=== PATIENT | male | born 1955 | race Caucasian/White ===

== ENCOUNTER 2016-07-08 07:17 | Observation (INO) | payer BC ==
[2016-07-08] MEDS ORDERED: SODIUM CHLORIDE 0.9% 1,000 ML IV STA (07:41)
--- NOTE | 2016-07-08 07:48 | ED ---
General Adult HPI - General Chief complaint: Chest Pain Stated complaint: chest pain Time Seen by Provider: 07/08/16 07:27 Source: patient, RN notes reviewed Mode of arrival: EMS Limitations: no limitations - History of Present Illness Initial comments: Patient is a pleasant 60-year-old male presenting to the emergency Department with complaints of weakness and paresthesias and chest discomfort. Last known well was when he went to sleep. Patient awoke this morning prior to arrival and was sweaty. Patient had chest pressure however it was mild and has resolved. Patient felt weak all over. No isolated area of weakness. Patient does have continued paresthesias in his entire left side. Patient has been experiencing these paresthesias for several months and really frequently. No confusion. - Related Data Home Medications Medication Instructions Recorded Confirmed Aspirin 81 mg PO DAILY 07/03/15 02/14/16 Clopidogrel [Plavix] 75 mg PO HS 07/03/15 02/14/16 Lisinopril [Zestril] 5 mg PO HS 07/03/15 02/14/16 Metoprolol Tartrate [Lopressor] 25 mg PO DAILY 07/03/15 02/14/16 Glucosamine 750 Mg 750 mg PO DAILY 02/14/16 02/14/16 Previous Rx's Medication Instructions Recorded Atorvastatin [Lipitor] 80 mg PO HS #30 tab 05/24/15 Nitroglycerin Sl Tabs [Nitrostat] 0.4 mg SUBLINGUAL Q5M PRN #25 tab 05/24/15 Allergies Allergy/AdvReac Type Severity Reaction Status Date / Time Penicillins Allergy Rash/Hives Verified 07/08/16 07:22 Review of Systems ROS Statement: Those systems with pertinent positive or pertinent negative responses have been documented in the HPI. ROS Other: All systems not noted in ROS Statement are negative. Constitutional: Denies: fever Eyes: Denies: eye pain ENT: Denies: ear pain Respiratory: Denies: cough, dyspnea Cardiovascular: Reports: chest pain Endocrine: Denies: heat or cold intolerance Gastrointestinal: Denies: abdominal pain Genitourinary: Denies: dysuria Musculoskeletal: Denies: back pain Skin: Denies: rash Neurological: Reports: weakness (Generalized), paresthesias. Denies: headache Past Medical History Past Medical History: Coronary Artery Disease (CAD), Chest Pain / Angina, Hyperlipidemia, Hypertension, Myocardial Infarction ([place]) Additional Past Medical History / Comment(s): 05/21/15 STEMI-LAD with PTCA and stent to LAD. Echo at that time showed EF of 35-40%. Other HX: Spina bifida, vertigo with vestibular neuronitis, sinusitis Last Myocardial Infarction Date:: 05/21/15 History of Any Multi-Drug Resistant Organisms: None Reported Past Surgical History: Heart Catheterization With Stent, Joint Replacement, Tonsillectomy Additional Past Surgical History / Comment(s): 05/21/15 PTCA with stent to LAD , right knee replacement, 2013 colonoscopy Past Anesthesia/Blood Transfusion Reactions: No Reported Reaction Date of Last Stent Placement:: 05/21/15 Past Psychological History: No Psychological Hx Reported Additional Psychological History / Comment(s): Pt resides with his spouse. He is independent. He uses no assistive device. He drives. Smoking Status: Former smoker Past Alcohol Use History: Occasional Additional Past Alcohol Use History / Comment(s): Pt smoked for one year as a teen then quit. Past Drug Use History: None Reported - Past Family History Father Family Medical History: Myocardial Infarction ([place]) Additional Family Medical History / Comment(s): father at age 51 from a heart attack Mother Family Medical History: Cancer Additional Family Medical History / Comment(s): breast Daughter(s) Family Medical History: Cancer Additional Family Medical History / Comment(s): thyroid General Exam Limitations: no limitations General appearance: alert, in no apparent distress Head exam: Present: atraumatic Eye exam: Present: normal appearance, PERRL ENT exam: Present: normal oropharynx Neck exam: Present: normal inspection Respiratory exam: Present: normal lung sounds bilaterally Cardiovascular Exam: Present: regular rate, normal rhythm GI/Abdominal exam: Present: soft. Absent: tenderness Extremities exam: Present: normal inspection. Absent: pedal edema, calf tenderness Neurological exam: Present: alert, oriented X3, CN II-XII intact. Absent: motor sensory deficit Expanded Speech: Present: fluid speech Cranial nerves: EOM's Intact: Normal, Facial Sensation: Normal Cerebellar function: Finger to Nose: Normal Sensory exam: Upper Extremity Light Touch: Normal, Lower Extremity Light Touch: Normal Motor strength exam: RUE: 5, LUE: 5, RLE: 5, LLE: 5 Eye Response: (4) open spontaneously Motor Response: (6) obeys commands Verbal Response: (5) oriented Psychiatric exam: Present: normal affect, normal mood Skin exam: Absent: rash Course Vital Signs 07/08/16 07/08/16 07/08/16 07:22 08:22 10:22 Temperature 97.4 F L Pulse Rate 56 L 56 L 66 Respiratory Rate Blood Pressure 157/87 134/80 127/74 O2 Sat by Pulse 99 98 98 Oximetry EKG Findings - EKG Comments: EKG Findings:: Sinus bradycardia at 54. Normal intervals. Normal axis. Septal Q waves. No acute ST change. Medical Decision Making - Medical Decision Making Patient reevaluated and resting comfortably in bed. Patient and family updated on results and plan. Case was discussed in detail with Dr. Steele, who will admit for Dr. Macdonald. - Lab Data Result diagrams: 07/08/16 07:33 07/08/16 07:33 Lab Results 07/08/16 07/08/16 07/08/16 Range/Units 07:33 07:33 07:33 WBC 7.2 (3.8-10.6) k/uL RBC 5.32 (4.30-5.90) m/uL Hgb 15.4 (13.0-17.5) gm/dL Hct 47.7 (39.0-53.0) % MCV 89.7 (80.0-100.0) fL MCH 28.9 (25.0-35.0) pg MCHC 32.2 (31.0-37.0) g/dL RDW 12.4 (11.5-15.5) % Plt Count 202 (150-450) k/uL Neutrophils % 78 % Lymphocytes % 12 % Monocytes % 8 % Eosinophils % 1 % Basophils % 1 % Neutrophils # 5.6 (1.3-7.7) k/uL Lymphocytes # 0.9 L (1.0-4.8) k/uL Monocytes # 0.5 (0-1.0) k/uL Eosinophils # 0.0 (0-0.7) k/uL Basophils # 0.1 (0-0.2) k/uL PT (9.0-12.0) sec INR (<1.1) APTT (22.0-30.0) sec Sodium 142 (137-145) mmol/L Potassium 4.2 (3.5-5.1) mmol/L Chloride 107 (98-107) mmol/L Carbon Dioxide 25 (22-30) mmol/L Anion Gap 10 mmol/L BUN 14 (9-20) mg/dL Creatinine 1.03 (0.66-1.25) mg/dL Est GFR (MDRD) Af Amer >60 (>60 ml/min/1.73 sqM) Est GFR (MDRD) Non-Af >60 (>60 ml/min/1.73 sqM) Glucose 105 H (74-99) mg/dL Calcium 8.4 (8.4-10.2) mg/dL Magnesium 2.0 (1.6-2.3) mg/dL Total Bilirubin 0.6 (0.2-1.3) mg/dL AST 21 (17-59) U/L ALT 43 (21-72) U/L Alkaline Phosphatase 75 (38-126) U/L Total Creatine Kinase 134 (55-170) U/L CK-MB (CK-2) 0.9 (0.0-2.4) ng/mL CK-MB (CK-2) Rel Index 0.7 Troponin I <0.012 (0.000-0.034) ng/mL Total Protein 6.0 L (6.3-8.2) g/dL Albumin 3.6 (3.5-5.0) g/dL 07/08/16 Range/Units 07:33 WBC (3.8-10.6) k/uL RBC (4.30-5.90) m/uL Hgb (13.0-17.5) gm/dL Hct (39.0-53.0) % MCV (80.0-100.0) fL MCH (25.0-35.0) pg MCHC (31.0-37.0) g/dL RDW (11.5-15.5) % Plt Count (150-450) k/uL Neutrophils % % Lymphocytes % % Monocytes % % Eosinophils % % Basophils % % Neutrophils # (1.3-7.7) k/uL Lymphocytes # (1.0-4.8) k/uL Monocytes # (0-1.0) k/uL Eosinophils # (0-0.7) k/uL Basophils # (0-0.2) k/uL PT 10.6 (9.0-12.0) sec INR 1.1 (<1.1) APTT 24.4 (22.0-30.0) sec Sodium (137-145) mmol/L Potassium (3.5-5.1) mmol/L Chloride (98-107) mmol/L Carbon Dioxide (22-30) mmol/L Anion Gap mmol/L BUN (9-20) mg/dL Creatinine (0.66-1.25) mg/dL Est GFR (MDRD) Af Amer (>60 ml/min/1.73 sqM) Est GFR (MDRD) Non-Af (>60 ml/min/1.73 sqM) Glucose (74-99) mg/dL Calcium (8.4-10.2) mg/dL Magnesium (1.6-2.3) mg/dL Total Bilirubin (0.2-1.3) mg/dL AST (17-59) U/L ALT (21-72) U/L Alkaline Phosphatase (38-126) U/L Total Creatine Kinase (55-170) U/L CK-MB (CK-2) (0.0-2.4) ng/mL CK-MB (CK-2) Rel Index Troponin I (0.000-0.034) ng/mL Total Protein (6.3-8.2) g/dL Albumin (3.5-5.0) g/dL - Radiology Data Radiology results: image reviewed (Computed tomography scan of the brain shows no acute process. Chest x-ray shows no acute process.) Disposition Clinical Impression: Chest pain Disposition: ADMITTED IP TO THIS HOSP
[2016-07-08 08:01] LABS: Basophils # (A) 0.1 k/uL (0-0.2); Basophils % (A) 1 %; CH 30.4; Eosinophils % (A) 1 %; HCT 47.7 % (39.0-53.0); HDW 2.41; HGB 15.4 gm/dL (13.0-17.5); Luc # (Auto) 0.07; Luc % (Auto) 1; Lymphocytes # (A) 0.9 k/uL (1.0-4.8); Lymphocytes % (A) 12 %; MCH 28.9 pg (25.0-35.0); MCHC 32.2 g/dL (31.0-37.0); MCV 89.7 fL (80.0-100.0); Mean Platelet Volume 7.5; Monocytes # (A) 0.5 k/uL (0-1.0); Monocytes % (A) 8 %; Neutrophils # (A) 5.6 k/uL (1.3-7.7); Neutrophils % (A) 78 %; RBC 5.32 m/uL (4.30-5.90); RDW 12.4 % (11.5-15.5); WBC 7.2 k/uL (3.8-10.6); WBC (Perox) 7.47
[2016-07-08 08:03] LABS: INR 1.1 (<1.1); Partial Thromboplastin Time 24.4 sec (22.0-30.0); Prothrombin Time 10.6 sec (9.0-12.0)
[2016-07-08 08:11] LABS: ALT 43 U/L (21-72); AST 21 U/L (17-59); Alkaline Phosphatase 75 U/L (38-126); Anion Gap 10 mmol/L; Blood Urea Nitrogen 14 mg/dL (9-20); Calcium 8.4 mg/dL (8.4-10.2); Carbon Dioxide 25 mmol/L (22-30); Chloride 107 mmol/L (98-107); Glucose 105 mg/dL (74-99); Non-African American GFR(MDRD) >60 (>60 ml/min/1.73 sqM); Potassium 4.2 mmol/L (3.5-5.1); Sodium 142 mmol/L (137-145); Total Bilirubin 0.6 mg/dL (0.2-1.3)
[2016-07-08 08:18] LABS: Creatine Kinase 134 U/L (55-170)
--- NOTE | 2016-07-08 08:25 | CT ---
EXAMINATION TYPE: CT brain wo con DATE OF EXAM: 07/08/2016 8:16 AM COMPARISON: 11/09/2013 INDICATION: Weakness and paresthesia DLP: 1090.4 mGycm, Automated exposure control for dose reduction was used. CONTRAST: None CT of the brain is performed utilizing 3 mm thick sections through the posterior fossa and 3 mm thick sections through the remaining calvarium. Study is performed within 24 hours of arrival to the hosp [facility]. No abnormal hyperdensity is present to suggest an acute intracranial hemorrhage. No mass lesion is evident. No acute infarcts are evident. Ventricles and sulci are appropriate for the patient age. Paranasal sinuses and mastoid air cells within the [id number] are clear. IMPRESSIONS: 1. Normal CT Brain
--- NOTE | 2016-07-08 08:27 | XR ---
EXAMINATION TYPE: XR chest 2V DATE OF EXAM: 07/08/2016 8:19 AM COMPARISON: 02/14/2016 INDICATION: Chest pain TECHNIQUE: Frontal and lateral views of the chest are obtained. FINDINGS: The heart size is normal. The pulmonary vasculature is normal. The lungs are clear. IMPRESSION: 1. No acute pulmonary process.
[2016-07-08 08:31] LABS: Creatine Kinase MB 0.9 ng/mL (0.0-2.4); Troponin I <0.012 ng/mL (0.000-0.034)
[2016-07-08] MEDS ORDERED: ASPIRIN 81 MG CHEW PO STA (10:25)
[2016-07-08] MEDS ORDERED: NITROGLYCERIN SL TABS 0.4 MG TAB SUBLINGUAL PRN (10:25)
[2016-07-08] MEDS: NITROGLYCERIN OINT 1 INCH/GM PACKET TOPICAL SCH ×2 (12:24→19:30)
[2016-07-08 14:36] LABS: Creatine Kinase 118 U/L (55-170)
[2016-07-08 14:49] LABS: Creatine Kinase MB 0.8 ng/mL (0.0-2.4); Troponin I <0.012 ng/mL (0.000-0.034)
[2016-07-08] MEDS ORDERED: GLUCOSAMINE 750 MG PO SCH (16:45)
[2016-07-08] MEDS: METOPROLOL TARTRATE 25 MG TAB PO SCH (17:27)
[2016-07-08] MEDS ORDERED: ATORVASTATIN 80 MG TAB PO SCH (21:00)
[2016-07-08] MEDS ORDERED: LISINOPRIL 5 MG TAB PO SCH (21:00)
[2016-07-08] MEDS ORDERED: CLOPIDOGREL 75 MG TAB PO SCH (21:00)
[2016-07-08 22:14] LABS: Creatine Kinase 140 U/L (55-170)
[2016-07-08 22:28] LABS: Creatine Kinase MB 0.7 ng/mL (0.0-2.4); Troponin I <0.012 ng/mL (0.000-0.034)
[2016-07-09] MEDS: NITROGLYCERIN OINT 1 INCH/GM PACKET TOPICAL SCH ×3 (05:55→15:06)
[2016-07-09 07:46] LABS: Cholesterol 92 mg/dL (<200); HDL Cholesterol 32 mg/dL (40-60); Triglycerides 50 mg/dL (<150)
[2016-07-09] MEDS ORDERED: ASPIRIN 325 MG TAB PO SCH (09:00)
[2016-07-09 09:08] VITALS: RESP 16
[2016-07-09] MEDS: METOPROLOL TARTRATE 25 MG TAB PO SCH (11:00)
--- NOTE | 2016-07-09 11:07 | CONS ---
DATE OF CONSULTATION: CHIEF COMPLAINT: Chest pain. Jaspreet is a 60-year-old gentleman with history of coronary artery disease, status post angioplasty of LAD in April 2015 who presented to the hospital complaining of chest pain. He describes it as a sharp precordial pain without definite radiation to neck, arm or back. He has had some diaphoresis with it, but he also has several other symptoms including facial numbness, left arm numbness and left leg numbness. The numbness is being evaluated by a neurologist. From cardiac standpoint, he looks fine now. EKG does not reveal any ischemic changes. He is symptom free. Cardiac enzymes are negative. He had a stress test in February 10 that was unremarkable. He had an echocardiogram at the beginning of last year that revealed normal LV function. Past medical history is significant for CAD, status post angioplasty, dyslipidemia. Medications include aspirin, Zestril 5 mg daily, Plavix 75 mg daily, Lipitor and sublingual nitroglycerin on a p.r.n. basis. ALLERGIC TO PENICILLIN AND PAXIL. FAMILY HISTORY: Significant for aortic aneurysm in his grandmother. REVIEW OF SYSTEMS: HEENT: Unremarkable. CARDIAC: As described above. RESPIRATORY: Negative. GI: Negative. GENITOURINARY: Negative. ALLERGY/IMMUNOLOGY: Negative. SKIN: Negative. MUSCULOSKELETAL: Negative. PSYCHOSOCIAL: Negative. ENDOCRINE: Negative. DERMATOLOGIC: Negative. CONSTITUTIONAL: Negative. ONCOLOGICAL: Negative. The rest of the system review is not relevant. On exam, comfortable at rest. Vital signs are stable. There is no jugular venous distention. Carotid upstroke is normal. There is no bruit. Chest exam reveals good air entry bilaterally. Heart exam reveals first and second heart sounds. No gallop. No murmur, no rub. Abdomen is soft, nontender. Exam of the extremities did not reveal edema. Peripheral pulses are felt. CT brain is negative. EKG is normal. Chest x-ray is normal. Cardiac enzymes are negative. ASSESSMENT: 1. Atypical chest pain. 2. Coronary artery disease, status post angioplasty. 3. Numbness involving left side of his face. PLAN: From cardiac standpoint he is doing well, had a recent negative stress test. I will obtain a 2-D echo on him to assess his LV function. Facial numbness will be followed by the neurologist.
--- NOTE | 2016-07-09 11:19 | P.HPIM ---
History of Present Illness H&P Date: 07/09/16 Chief Complaint: Sweats, chest pain HISTORY AND PHYSICAL AND DISCHARGE SUMMARY: This is a 60-year-old male. His partner care physician is Dr. Rolando Macdonald and software writer Dr. MAYTE Freitas. Patient states that he woke up in the morning drenched with sweat and had upper mid chest pain. He took a nitroglycerin at home and then a second one on the way into the hospital by EMS. He has a past medical history of acute myocardial infarction in June 2015 status post PCI and stent placement of the LAD, hyperlipidemia, hypertension, spina bifida, vertigo was vestibular neuronitis, sinusitis. Patient states that his chest pain has been gone. He also complains of left face tingling and numbness that has been going on for 3 months. It's over the left cheek and also the scalp over the ear area. He denies any leg or arm involvement. He saw his primary care physician and was not given any medications for this. However patient has had problems with stomach upset for which Dr. MAYTE Freitas placed him on Protonix without any improvement. When he saw his primary care physician, he thought it was related to irritable bowel and patient was placed on Paxil and he took this for 2 days but had a severe psychosis reaction and this was discontinued and patient was placed on a medication specifically for irritable bowel syndrome. Patient is also seen Dr. Nunn in the past couple years ago when he had dizziness issues. Troponins have been negative on 3 draws. Vitamin B12 is 478, triglycerides 50, cholesterol 92, LDL 50, HDL 32. Chest x-ray did not show any acute process. CAT scan of the brain did not show any acute process. EKG was a sinus bradycardia without acute ST-T wave changes. Patient was placed on the observation unit. He has been seen by Dr. Mccoy and has recommended echocardiogram and discharge home and follow-up with Dr. MAYTE Freitas for further workup. Patient is in agreement with this and patient will be discharged home and follow-up also with Dr. Nunn as an outpatient for further workup regarding the paresthesia Review of Systems All systems: negative Constitutional: Reports sweats, Denies chills, Denies fever Eyes: denies blurred vision, denies pain Ears, nose, mouth and throat: Denies headache, Denies sore throat Cardiovascular: Reports chest pain, Denies decreased exercise tolerance, Denies dyspnea on exertion, Denies edema, Denies leg edema, Denies lightheadedness, Denies palpitations, Denies paroxysmal nocturnal dyspnea, Denies shortness of breath, Denies syncope Respiratory: Denies cough Gastrointestinal: Denies abdominal pain, Denies diarrhea, Denies nausea, Denies vomiting Musculoskeletal: Denies myalgias Integumentary: Denies pruritus, Denies rash Neurological: Denies numbness, Denies weakness Psychiatric: Denies anxiety, Denies depression Endocrine: Denies fatigue, Denies weight change Past Medical History Past Medical History: Coronary Artery Disease (CAD), Chest Pain / Angina, Hyperlipidemia, Hypertension, Myocardial Infarction ([place]) Additional Past Medical History / Comment(s): 05/21/15 STEMI-LAD with PTCA and stent to LAD. Echo at that time showed EF of 35-40%. Other HX: Spina bifida, vertigo with vestibular neuronitis, sinusitis Last Myocardial Infarction Date:: 05/21/15 History of Any Multi-Drug Resistant Organisms: None Reported Past Surgical History: Heart Catheterization With Stent, Joint Replacement, Tonsillectomy Additional Past Surgical History / Comment(s): 05/21/15 PTCA with stent to LAD , right knee replacement, 2013 colonoscopy Past Anesthesia/Blood Transfusion Reactions: No Reported Reaction Date of Last Stent Placement:: 05/21/15 Past Psychological History: No Psychological Hx Reported Additional Psychological History / Comment(s): Pt resides with his spouse. He is independent. He uses no assistive device. He drives. Smoking Status: Never smoker Past Alcohol Use History: Occasional Additional Past Alcohol Use History / Comment(s): Pt smoked for one year as a teen then quit. Past Drug Use History: None Reported - Past Family History Father Family Medical History: Myocardial Infarction ([place]) Additional Family Medical History / Comment(s): father at age 51 from a heart attack Mother Family Medical History: Cancer Additional Family Medical History / Comment(s): breast Daughter(s) Family Medical History: Cancer Additional Family Medical History / Comment(s): thyroid Medications and Allergies Home Medications Medication Instructions Recorded Confirmed Type Aspirin 81 mg PO DAILY 07/03/15 07/08/16 History Clopidogrel [Plavix] 75 mg PO HS 07/03/15 07/08/16 History Lisinopril [Zestril] 5 mg PO HS 07/03/15 07/08/16 History Metoprolol Tartrate [Lopressor] 25 mg PO DAILY 07/03/15 07/08/16 History Glucosamine 750 Mg 750 mg PO DAILY 02/14/16 07/08/16 History Allergies Allergy/AdvReac Type Severity Reaction Status Date / Time Penicillins Allergy Rash/Hives Verified 07/08/16 10:39 paroxetine [From Paxil] AdvReac Hallucinati Verified 07/08/16 10:38 ons Physical Exam Vitals: Vital Signs Temp Pulse Pulse Resp BP BP Pulse Ox 07/09/16 09:51 96 07/09/16 08:00 97.8 F 61 16 136/72 97 07/09/16 04:00 97.7 F 55 L 18 117/63 97 07/09/16 00:00 52 L 14 07/08/16 20:00 97.9 F 61 18 111/64 95 07/08/16 16:00 98.3 F 56 L 16 122/66 96 07/08/16 12:00 14 07/08/16 11:51 14 07/08/16 11:45 98.2 F 70 16 137/69 95 07/08/16 10:56 97.4 F L 58 L 17 114/69 97 Intake and Output 07/08/16 07/09/16 07/09/16 22:59 06:59 14:59 Intake Total 120 Balance 120 Intake: Oral 120 Other: Voiding Method Toilet Toilet # Voids 1 1 Gen: This is a 60-year-old male. He is sitting up at the edge of the bed and eating his breakfast and appears to be in no acute distress. No complaints of chest pain or shortness of breath at this time. HEENT: Head is atraumatic, normocephalic. Pupils equal, round. Sclerae is anicteric. NECK: Supple. No JVD. No lymphadenopathy. No thyromegaly. LUNGS: Clear to auscultation. No wheezes or rhonchi. No intercostal retractions. HEART: Regular rate and rhythm. No murmur. ABDOMEN: Soft. Bowel sounds are present. No masses. No tenderness. EXTREMITIES: No pedal edema. No calf tenderness. Dorsalis pedis +2 bilaterally. NEUROLOGICAL: Patient is awake, alert and oriented x3. Cranial nerves 2 through 12 are grossly intact. Results CBC & Chem 7: 07/08/16 07:33 07/08/16 07:33 Labs: Abnormal Lab Results - Last 24 Hours (Table) 07/09/16 Range/Units 06:29 HDL Cholesterol 32 L (40-60) mg/dL Thrombosis Risk Factor Assmnt - DVT/VTE Prophylaxis DVT/VTE Prophylaxis: Low risk, early ambulation encouraged - Choose All That Apply Any of the Below Risk Factors Present?: Yes Each Factor Represents 1 point: Obesity (BMI >25) Other Risk Factors: Yes Each Risk Factor Represents 2 Points: Age 61-74 years Thrombosis Risk Factor Assessment Total Risk Factor Score: 3 Thrombosis Risk Factor Assessment Level: Moderate Risk Assessment and Plan Plan: 1. Atypical chest pain. Patient has been seen by Dr Mccoy. Echocardiogram to be obtained and patient will be discharged home to follow-up with Dr. MAYTE Freitas. 2. Paresthesia of the left side of his face and scalp. Patient to follow-up with Dr. Nunn. Prednisone added. Patient will need workup for possible C1 involvement or MS workup is a possibility. 3. History of coronary artery disease status post PCI and stent placement of the LAD in June 2015. 4. Hyperlipidemia. 5. Hypertension. 6. Vertigo with vestibular neuronitis. Patient placed on the observation unit. Discharge plan: Return home Impression and plan of care have been directed as dictated by the signing physician. Camelia Becerra nurse practitioner acting as scribe for signing physician. Time with Patient: Greater than 30
[2016-07-09 12:42] VITALS: BP 123/68; PULSE 63; TEMP 98.4
--- NOTE | 2016-07-09 13:34 | ECHOF ---
Referral Reason:heart function MEASUREMENTS -------- HEIGHT: 188.0 cm WEIGHT: 89.8 kg BP: 136/72 IVSd: 1.3 cm (0.6 - 1.1) LVIDd: 4.3 cm (3.9 - 5.3) LVPWd: 1.3 cm (0.6 - 1.1) LVIDs: 2.8 cm LA Diam: 4.0 cm (2.7 - 3.8) RVIDd: 3.3 cm (< 3.3) LAESV Index (A-L): 30.90 ml/m Ao Diam: 3.2 cm (2.0 - 3.7) AV Cusp: 2.2 cm (1.5 - 2.6) EPSS: 0.6 cm MV E Galindo: 0.78 m/s MV DecT: 200 ms MV A Galindo: 0.55 m/s MV E/A Ratio: 1.41 RAP: 5.00 mmHg RVSP: 18.61 mmHg MV EF SLOPE: 99.68 mm/s (70 - 150) MV EXCURSION: 14.58 mm (> 18.000) FINDINGS -------- Sinus rhythm. This was a technically good study. The left ventricular size is normal. There is mild concentric left ventricular hypertrophy. Overall left ventricular systolic function is normal with, an EF between 60 - 65 %. The right ventricle is mildly enlarged. LA is midly dilated 29-33ml/m2. The right atrium is normal in size. Aortic valve is trileaflet and is mildly thickened. Mild mitral annular calcification present. Mild mitral regurgitation is present. Trace tricuspid regurgitation present. Right ventricular systolic pressure is normal at < 35 mmHg. Trace/mild (physiologic) pulmonic regurgitation. The aortic root size is normal. There is no pericardial effusion. CONCLUSIONS -------- 1. Sinus rhythm. 2. Mild mitral annular calcification present. 3. Mild mitral regurgitation is present. 4. Trace tricuspid regurgitation present. 5. Right ventricular systolic pressure is normal at < 35 mmHg. 6. Trace/mild (physiologic) pulmonic regurgitation. 7. The aortic root size is normal. 8. There is no pericardial effusion. 9. This was a technically good study. 10. The left ventricular size is normal. 11. There is mild concentric left ventricular hypertrophy. 12. Overall left ventricular systolic function is normal with, an EF between 60 - 65 %. 13. The right ventricle is mildly enlarged. 14. LA is midly dilated 29-33ml/m2. 15. The right atrium is normal in size. 16. Aortic valve is trileaflet and is mildly thickened. DIRECTOR DIVERSITY: Herlinda Barahona RDCS
== END 2016-07-09 15:05 | disposition home or self-care (01) ==
LOC: EC 07:17 → 3OBS 10:31
PROVIDERS: ADMIT Family Medicine; ATTEND Family Medicine
DX: R07.89 Other chest pain (principal); R61 Generalized hyperhidrosis; R53.1 Weakness; R20.0 Anesthesia of skin; R20.2 Paresthesia of skin; H81.20 Vestibular neuronitis, unspecified ear; E78.5 Hyperlipidemia, unspecified; I10 Essential (primary) hypertension; I25.2 Old myocardial infarction; K58.9 Irritable bowel syndrome, unspecified; E66.9 Obesity, unspecified; Z68.25 Body mass index [BMI] 25.0-25.9, adult; I25.10 Atherosclerotic heart disease of native coronary artery without angina pectoris; Z95.5 Presence of coronary angioplasty implant and graft; Z79.82 Long term (current) use of aspirin; Z79.02 Long term (current) use of antithrombotics/antiplatelets; Z79.899 Other long term (current) drug therapy; Z87.891 Personal history of nicotine dependence; Z88.0 Allergy status to penicillin; Z88.8 Allergy status to other drugs, medicaments and biological substances
CPT/HCPCS: 96360; 96361 ×2; 99285; 36415; 93005; 93306; 80061; 80053; 82607; 82550; 82553; 83735; 84484; 85025; 85610; 85730; 71020; 70450; G0378 ×2

== ENCOUNTER 2016-07-18 07:51 | Day surgery (SDC) | payer BC ==
[2016-07-14 12:14] VITALS: BMI 25.7
[~2016-07-18 07:51] MED LIST: SODIUM CHLORIDE 0.9% 1,000 ML IV SCH
[2016-07-18 08:16] VITALS: RESP 18; TEMP 98.2
[2016-07-18 09:47] VITALS: BP 104/70; PULSE 49
--- NOTE | 2016-07-18 17:32 | CE ---
DATE OF SERVICE: 12-lead ECG shows sinus rhythm with normal NE interval and narrow QRS. Heart rate 48 beats a minute. Septal infarct noted, likely old. Tilt table test was performed per protocol. Baseline blood pressure 112/70 mmHg, 48 beats a minute. He was tilted upright at an angle of 70 degrees per protocol. There was no significant change in his heart rate or blood pressure. Heart rate remained in the 50s and 60s. No syncope was noted. At the end of the procedure he was laid supine. IMPRESSION: 1. Normal heart rate and blood pressure response to upright tilting. 2. Sinus bradycardia with septal infarct noted.
== END 2016-07-18 10:00 | disposition home or self-care (01) ==
LOC: CATHEP 07:51
PROVIDERS: ATTEND Internal Medicine Clinical Cardiac Electrophysiology
DX: R00.1 Bradycardia, unspecified (principal); I25.10 Atherosclerotic heart disease of native coronary artery without angina pectoris; Z95.820 Peripheral vascular angioplasty status with implants and grafts; E78.00 Pure hypercholesterolemia, unspecified; I25.2 Old myocardial infarction; Z82.49 Family history of ischemic heart disease and other diseases of the circulatory system; Z79.82 Long term (current) use of aspirin; Z79.899 Other long term (current) drug therapy; Z88.0 Allergy status to penicillin
CPT/HCPCS: 93005; 93660

== ENCOUNTER → 2016-07-28 | Outpatient (CLI) | payer BC ==
--- NOTE | 2016-07-28 12:59 | MR ---
EXAMINATION TYPE: MR angio head wo con DATE OF EXAM: 07/28/2016 12:54 PM COMPARISON: NONE HISTORY: Headaches, dizziness, numbness Three-dimensional [id number] intracranial MRA was performed with multiple intensity projection im ages submitted and source data reviewed at the workstation. The vertebrobasilar system as well as intracranial portions of the internal carotid arteries and thei r major tributaries are patent. I do not see evidence for sizable aneurysm or vascular malformation. Incidental origin of the left posterior communicating artery. IMPRESSION: No significant abnormality identified.
--- NOTE | 2016-07-28 13:07 | MR ---
EXAMINATION TYPE: MR brain wo/w con DATE OF EXAM: 07/28/2016 1:01 PM COMPARISON: NONE HISTORY: Headaches, dizziness, numbness CONTRAST: Patient received 18 mL intravenous MultiHance gadolinium contrast. Multiplanar and multispin-echo imaging of the brain was performed . Pre and post contrast enhanced i mages are obtained. The ventricles, basal cisterns and sulci overlying the cerebral convexities are mildly enlarged. There is evidence of minimal periventricular white matter ischemic demyelination. Remote deep white matter insults are also noted. No acute edema is seen on diffusion weighted imaging. There is no evidence for midline shift or mass effect. Acute intracranial hemorrhage or extra-axial collection is not evident. No enhancing lesions are seen. The paranasal sinuses and mastoid air cells are well-aerated. IMPRESSION: Age-related atrophic and chronic small vessel ischemic change. No acute intracranial process at this time. No enhancing lesions are seen.
== END ==
LOC: RADMRIMAIN 11:59
PROVIDERS: ATTEND Psychiatry & Neurology Neurology
DX: G31.9 Degenerative disease of nervous system, unspecified (principal); G37.8 Other specified demyelinating diseases of central nervous system; Z88.0 Allergy status to penicillin; Z88.8 Allergy status to other drugs, medicaments and biological substances
CPT/HCPCS: 70544; 70553; A9577

== ENCOUNTER 2018-01-05 07:40 | Observation (INO) | payer BC ==
[2018-01-05] MEDS ORDERED: ASPIRIN 81 MG PO STA (08:00)
[2018-01-05] MEDS ORDERED: NITROGLYCERIN SL TABS 0.4 MG TAB SUBLINGUAL STA ×2 (08:00)
[2018-01-05] MEDS ORDERED: NITROGLYCERIN OINT 1 INCH/GM PACKET TOPICAL STA (08:00)
--- NOTE | 2018-01-05 08:03 | ED ---
General Adult HPI - General Chief complaint: Chest Pain Stated complaint: chest pain Time Seen by Provider: 01/05/18 07:40 Source: patient, RN notes reviewed Mode of arrival: wheelchair Limitations: no limitations - History of Present Illness Initial comments: This is a 62-year-old male with a past medical history significant for high blood pressure and high cholesterol. Patient also had a stent placed for heart attack back in April. Patient states over the last few days been getting some chest pain and some arm radiation but it hasn't stay very long. Patient states last night about midnight he had the chest pressure again with radiation to the jaw and arm and it lasted the whole night. Patient states his Imdur seemed to improve the symptoms but never took them away. Patient denies any smoking history. Patient denies diabetes. Patient denies any headache patient denies numbness weakness. Patient denies any lightheadedness dizziness or near- syncopal episode. Patient denies any shortness of breath or difficulty breathing. Patient denies any nausea. Patient denies any abdominal pain patient denies any vomiting or diarrhea. - Related Data Home Medications Medication Instructions Recorded Confirmed Aspirin 81 mg PO DAILY 07/03/15 07/18/16 Clopidogrel [Plavix] 75 mg PO HS 07/03/15 07/18/16 Lisinopril [Zestril] 5 mg PO HS 07/03/15 07/18/16 Metoprolol Tartrate [Lopressor] 25 mg PO DAILY 07/03/15 07/18/16 Glucosamine 750 Mg 750 mg PO DAILY 02/14/16 07/18/16 Previous Rx's Medication Instructions Recorded Atorvastatin [Lipitor] 80 mg PO HS #30 tab 05/24/15 Nitroglycerin Sl Tabs [Nitrostat] 0.4 mg SUBLINGUAL Q5M PRN #25 tab 05/24/15 Allergies Allergy/AdvReac Type Severity Reaction Status Date / Time Penicillins Allergy Rash/Hives Verified 01/05/18 07:42 guaifenesin [From Robitussin] AdvReac Unknown Verified 01/05/18 07:43 paroxetine [From Paxil] AdvReac Hallucinati Verified 01/05/18 07:42 ons Review of Systems ROS Statement: Those systems with pertinent positive or pertinent negative responses have been documented in the HPI. ROS Other: All systems not noted in ROS Statement are negative. Past Medical History Past Medical History: Coronary Artery Disease (CAD), Chest Pain / Angina, Hyperlipidemia, Hypertension, Myocardial Infarction ([place]) Additional Past Medical History / Comment(s): 05/21/15 STEMI-LAD with PTCA and stent to LAD. Echo at that time showed EF of 35-40%. Other HX: Spina bifida, vertigo with vestibular neuronitis, sinusitis Last Myocardial Infarction Date:: 05/21/15 History of Any Multi-Drug Resistant Organisms: None Reported Past Surgical History: Heart Catheterization With Stent, Joint Replacement, Tonsillectomy Additional Past Surgical History / Comment(s): 05/21/15 PTCA with stent to LAD , right knee replacement, 2013 colonoscopy Past Anesthesia/Blood Transfusion Reactions: No Reported Reaction Date of Last Stent Placement:: 05/21/15 Past Psychological History: No Psychological Hx Reported Smoking Status: Never smoker Past Alcohol Use History: Occasional Past Drug Use History: None Reported - Past Family History Father Family Medical History: Myocardial Infarction ([place]) Additional Family Medical History / Comment(s): father at age 51 from a heart attack Mother Family Medical History: Cancer Additional Family Medical History / Comment(s): breast Daughter(s) Family Medical History: Cancer Additional Family Medical History / Comment(s): thyroid General Exam - General Exam Comments Initial Comments: GENERAL: Patient is well-developed and well-nourished. Patient is nontoxic and well- hydrated and is in mild distress. ENT: Neck is soft and supple. No significant lymphadenopathy is noted. Oropharynx is clear. Moist mucous membranes. Neck has full range of motion without eliciting any pain. EYES: The sclera were anicteric and conjunctiva were pink and moist. Extraocular movements were intact and pupils were equal round and reactive to light. Eyelids were unremarkable. PULMONARY: Unlabored respirations. Good breath sounds bilaterally. No audible rales rhonchi or wheezing was noted. CARDIOVASCULAR: There is a regular rate and rhythm without any murmurs gallops or rubs. ABDOMEN: Soft and nontender with normal bowel sounds. No palpable organomegaly was noted. There is no palpable pulsatile mass. SKIN: Skin is clear with no lesions or rashes and otherwise unremarkable. NEUROLOGIC: Patient is alert and oriented x3. Cranial nerves II through XII are grossly intact. Motor and sensory are also intact. Normal speech, volume and content. Symmetrical smile. MUSCULOSKELETAL: Normal extremities with adequate strength and full range of motion. No lower extremity swelling or edema. No calf tenderness. LYMPHATICS: No significant lymphadenopathy is noted PSYCHIATRIC: Normal psychiatric evaluation. Normal interpersonal interactions appears functionally intact in deals appropriately with others. No signs of depression. No signs of anxiety. Limitations: no limitations Course Vital Signs 01/05/18 01/05/18 07:41 08:42 Temperature 97.9 F Pulse Rate 69 52 L Respiratory 20 16 Rate Blood Pressure 149/71 126/76 O2 Sat by Pulse 98 99 Oximetry Medical Decision Making - Medical Decision Making EKG shows sinus bradycardia 53 bpm KS interval is 146 QRS is 88 QT interval is 428 QTC is 411. Patient's EKG shows no ST segment elevation or depression or T wave abnormalities are noted. Patient has Q waves in leads 3 and aVF which were seen on old EKG. A second EKG was done because the patient was given nitroglycerin and became sweaty and nauseated.EKG shows normal sinus rhythm at 63 bpm KS interval is 152 QRS is 88 QT interval is 400 QTC is 409. Patient's EKG shows no ST segment elevation or depression or T wave abnormalities are noted. EKG was unchanged from the first. Chest x-ray shows no acute abnormality. I started the patient heparin for unstable angina. I spoke with Dr. Matias and admitted the patient I wrote admitting orders consult cardiology. I continued heparin and aspirin and Nitropaste on the floor. - Lab Data Result diagrams: 01/05/18 08:01 01/05/18 08:01 Lab Results 01/05/18 01/05/18 01/05/18 Range/Units 08:01 08:01 08:01 WBC 5.8 (3.8-10.6) k/uL RBC 5.37 (4.30-5.90) m/uL Hgb 15.7 (13.0-17.5) gm/dL Hct 47.4 (39.0-53.0) % MCV 88.3 (80.0-100.0) fL MCH 29.3 (25.0-35.0) pg MCHC 33.2 (31.0-37.0) g/dL RDW 13.2 (11.5-15.5) % Plt Count 213 (150-450) k/uL Neutrophils % 68 % Lymphocytes % 20 % Monocytes % 8 % Eosinophils % 2 % Basophils % 1 % Neutrophils # 3.9 (1.3-7.7) k/uL Lymphocytes # 1.2 (1.0-4.8) k/uL Monocytes # 0.5 (0-1.0) k/uL Eosinophils # 0.1 (0-0.7) k/uL Basophils # 0.0 (0-0.2) k/uL PT (9.0-12.0) sec INR (<1.2) APTT (22.0-30.0) sec Sodium 139 (137-145) mmol/L Potassium 4.4 (3.5-5.1) mmol/L Chloride 107 (98-107) mmol/L Carbon Dioxide 24 (22-30) mmol/L Anion Gap 8 mmol/L BUN 24 H (9-20) mg/dL Creatinine 0.89 (0.66-1.25) mg/dL Est GFR (CKD-EPI)AfAm >90 (>60 ml/min/1.73 sqM) Est GFR (CKD-EPI)NonAf >90 (>60 ml/min/1.73 sqM) Glucose 119 H (74-99) mg/dL Calcium 9.0 (8.4-10.2) mg/dL Magnesium 2.0 (1.6-2.3) mg/dL Total Bilirubin 0.6 (0.2-1.3) mg/dL AST 25 (17-59) U/L ALT 38 (21-72) U/L Alkaline Phosphatase 76 (38-126) U/L Total Creatine Kinase 137 (55-170) U/L CK-MB (CK-2) 1.6 (0.0-2.4) ng/mL CK-MB (CK-2) Rel Index 1.2 Troponin I <0.012 (0.000-0.034) ng/mL Total Protein 6.3 (6.3-8.2) g/dL Albumin 4.0 (3.5-5.0) g/dL 01/05/18 Range/Units 08:01 WBC (3.8-10.6) k/uL RBC (4.30-5.90) m/uL Hgb (13.0-17.5) gm/dL Hct (39.0-53.0) % MCV (80.0-100.0) fL MCH (25.0-35.0) pg MCHC (31.0-37.0) g/dL RDW (11.5-15.5) % Plt Count (150-450) k/uL Neutrophils % % Lymphocytes % % Monocytes % % Eosinophils % % Basophils % % Neutrophils # (1.3-7.7) k/uL Lymphocytes # (1.0-4.8) k/uL Monocytes # (0-1.0) k/uL Eosinophils # (0-0.7) k/uL Basophils # (0-0.2) k/uL PT 10.4 (9.0-12.0) sec INR 1.1 (<1.2) APTT 24.0 (22.0-30.0) sec Sodium (137-145) mmol/L Potassium (3.5-5.1) mmol/L Chloride (98-107) mmol/L Carbon Dioxide (22-30) mmol/L Anion Gap mmol/L BUN (9-20) mg/dL Creatinine (0.66-1.25) mg/dL Est GFR (CKD-EPI)AfAm (>60 ml/min/1.73 sqM) Est GFR (CKD-EPI)NonAf (>60 ml/min/1.73 sqM) Glucose (74-99) mg/dL Calcium (8.4-10.2) mg/dL Magnesium (1.6-2.3) mg/dL Total Bilirubin (0.2-1.3) mg/dL AST (17-59) U/L ALT (21-72) U/L Alkaline Phosphatase (38-126) U/L Total Creatine Kinase (55-170) U/L CK-MB (CK-2) (0.0-2.4) ng/mL CK-MB (CK-2) Rel Index Troponin I (0.000-0.034) ng/mL Total Protein (6.3-8.2) g/dL Albumin (3.5-5.0) g/dL Critical Care Time Critical Care Time: Yes Total Critical Care Time: 35 Disposition Clinical Impression: Unstable angina Disposition: ADMITTED IP TO THIS HOSP Referrals: Jeremías Macdonald MD [Primary Care Provider] - 1-2 days Time of Disposition: 09:15
[2018-01-05 08:14] LABS: Basophils % (A) 1 %; Eosinophils # (A) 0.1 k/uL (0-0.7); Eosinophils % (A) 2 %; HCT 47.4 % (39.0-53.0); HGB 15.7 gm/dL (13.0-17.5); Lymphocytes # (A) 1.2 k/uL (1.0-4.8); Lymphocytes % (A) 20 %; MCH 29.3 pg (25.0-35.0); MCHC 33.2 g/dL (31.0-37.0); MCV 88.3 fL (80.0-100.0); Monocytes # (A) 0.5 k/uL (0-1.0); Monocytes % (A) 8 %; Neutrophils # (A) 3.9 k/uL (1.3-7.7); Neutrophils % (A) 68 %; Platelet Count 213 k/uL (150-450); RBC 5.37 m/uL (4.30-5.90); RDW 13.2 % (11.5-15.5); WBC 5.8 k/uL (3.8-10.6)
[2018-01-05] MEDS ORDERED: ONDANSETRON 4 MG/2 ML VIAL IVP STA (08:15)
[2018-01-05] MEDS ORDERED: SODIUM CHLORIDE 0.9% 1,000 ML IV STA (08:17)
[2018-01-05 08:22] LABS: ALT 38 U/L (21-72); AST 25 U/L (17-59); Alkaline Phosphatase 76 U/L (38-126); Anion Gap 8 mmol/L; Blood Urea Nitrogen 24 mg/dL (9-20); Carbon Dioxide 24 mmol/L (22-30); Chloride 107 mmol/L (98-107); Glucose 119 mg/dL (74-99); INR 1.1 (<1.2); Potassium 4.4 mmol/L (3.5-5.1); Prothrombin Time 10.4 sec (9.0-12.0); Sodium 139 mmol/L (137-145); Total Bilirubin 0.6 mg/dL (0.2-1.3); Total Protein 6.3 g/dL (6.3-8.2)
[2018-01-05 08:34] LABS: Creatine Kinase 137 U/L (55-170)
--- NOTE | 2018-01-05 08:41 | XR ---
EXAMINATION TYPE: XR chest 2V DATE OF EXAM: 01/05/2018 HISTORY: Chest Pain. REFERENCE: Previous study dated 07/08/2016. FINDINGS: Heart size upper limits of normal. The lungs are clear. Pleural spaces are clear. IMPRESSION: NO ACUTE CARDIOTHORACIC ABNORMALITY.
[2018-01-05 08:47] LABS: Creatine Kinase MB 1.6 ng/mL (0.0-2.4); Troponin I <0.012 ng/mL (0.000-0.034)
[2018-01-05] MEDS ORDERED: HEPARIN SODIUM,PORCINE 5,000 UNIT/ML 1 ML VIAL IV ONE (09:14)
[2018-01-05] MEDS ORDERED: NITROGLYCERIN SL TABS 0.4 MG TAB SUBLINGUAL PRN (09:16)
[2018-01-05] MEDS: HEPARIN SOD,PORK IN 0.45% NACL 25,000 UNIT in 0.45% NACL 1 500ML.BAG IV SCH (09:41)
[2018-01-05] MEDS ORDERED: ALPRAZolam 0.25 MG TAB PO PRN (11:33)
--- NOTE | 2018-01-05 11:44 | P.HPIM ---
History of Present Illness H&P Date: 01/05/18 Chief Complaint: Chest pain This is 62 years old male with past medical history significant for coronary artery disease presents to the hospital with new onset chest pain. Patient stated that his been in his regular state of health up until 24-48 hours ago where he started experiencing left sided chest pain radiating to the left arm and to the left jaw when he was resting watching TV. Pain was mild and patient described it as heaviness did not pay attention as pain went away on its own but returned again on Sunday patient started feeding concerned about his chest pain as he had heart attack back in 2014 where he received stent to LAD in April 2018 at [facility] by Dr. Lou. Patient says that time has been complaint with his medication including aspirin, Plavix, statin, beta sherly and MEGHNA inhibitor and stated that he does do regular follow-up with his mammalogy teacher on regular basis. Most recent cardiac evaluation was back in August 2016 where patient was evaluated with an other cardiac catheterization with a found patent stents and minimum coronary artery disease at that time and the recommendation was to continue with current medical treatment. Patient stated that he exercises 3 times a week 45 minutes session each with most recent was done on afternoon without inducing chest pain or having any symptoms. Patient denied any shortness breath or recent upper respiratory symptoms. Patient admitted being overworking himself in the yard and thinks that he was doing extra heavy lifting. Patient had significant past medical history for his father who age 52 because of heart attack and other family members with coronary artery disease at early ages. Patient denied history of tobacco, alcohol or drug abuse stated that he's retired general assignment reporter for [employer] and has been working under a lot of stress up until he retired age 59. Patient lives with his at home independently and independent in all his daily activities. Patient has improved slightly in the emergency department without complete resolution but physical exam revealed tenderness on palpation on the right upper chest area right underneath his clavicle without any swelling or bruising. Left shoulder range of motion without limitation. Left jaw without tenderness to touch. Deep palpation will induce severe pain. Review of Systems All 14 systems reviewed and negative except as above Past Medical History Past Medical History: Coronary Artery Disease (CAD), Chest Pain / Angina, Hyperlipidemia, Hypertension, Myocardial Infarction ([place]) Additional Past Medical History / Comment(s): 05/21/15 STEMI-LAD with PTCA and stent to LAD. Echo at that time showed EF of 35-40%. Other HX: Spina bifida, vertigo with vestibular neuronitis, sinusitis Last Myocardial Infarction Date:: 05/21/15 History of Any Multi-Drug Resistant Organisms: None Reported Past Surgical History: Heart Catheterization With Stent, Joint Replacement, Tonsillectomy Additional Past Surgical History / Comment(s): 05/21/15 PTCA with stent to LAD , right knee replacement, 2013 colonoscopy Past Anesthesia/Blood Transfusion Reactions: No Reported Reaction Date of Last Stent Placement:: 05/21/15 Past Psychological History: No Psychological Hx Reported Smoking Status: Never smoker Past Alcohol Use History: Occasional Past Drug Use History: None Reported - Past Family History Father Family Medical History: Myocardial Infarction ([place]) Additional Family Medical History / Comment(s): father at age 51 from a heart attack Mother Family Medical History: Cancer Additional Family Medical History / Comment(s): breast Daughter(s) Family Medical History: Cancer Additional Family Medical History / Comment(s): thyroid Medications and Allergies Home Medications Medication Instructions Recorded Confirmed Type Atorvastatin [Lipitor] 80 mg PO HS #30 tab 05/24/15 07/18/16 Rx Nitroglycerin Sl Tabs [Nitrostat] 0.4 mg SUBLINGUAL Q5M PRN #25 tab 05/24/15 Rx Aspirin 81 mg PO DAILY 07/03/15 07/18/16 History Clopidogrel [Plavix] 75 mg PO HS 07/03/15 07/18/16 History Lisinopril [Zestril] 5 mg PO HS 07/03/15 07/18/16 History Metoprolol Tartrate [Lopressor] 25 mg PO DAILY 07/03/15 07/18/16 History Glucosamine 750 Mg 750 mg PO DAILY 02/14/16 07/18/16 History Allergies Allergy/AdvReac Type Severity Reaction Status Date / Time Penicillins Allergy Rash/Hives Verified 01/05/18 07:42 guaifenesin [From Robitussin] AdvReac Unknown Verified 01/05/18 07:43 paroxetine [From Paxil] AdvReac Hallucinati Verified 01/05/18 07:42 ons Physical Exam Vitals: Vital Signs Temp Pulse Pulse Resp BP BP Pulse Ox 01/05/18 11:19 16 0811/18 11:17 54 L 16 108/61 98 01/05/18 09:44 98.2 F 51 L 16 106/65 97 01/05/18 08:42 52 L 16 126/76 99 01/05/18 07:41 97.9 F 69 20 149/71 98 Intake and Output 01/04/18 01/05/18 01/05/18 22:59 06:59 14:59 Other: Weight 90.718 kg Gen.: in stated age, no acute distress Heart: Normal S1-S2 Lungs: Clear to auscultation bilaterally Abdomen: Soft, no tenderness, positive bowel sounds in all 4 quadrant no guarding or rebound Skin: No new rash Psych: Alert and oriented 3 Neuro: No focal deficit physical exam revealed tenderness on palpation on the right upper chest area right underneath his clavicle without any swelling or bruising. Left shoulder range of motion without limitation. Left jaw without tenderness to touch. Deep palpation will induce severe pain Results CBC & Chem 7: 01/05/18 08:01 01/05/18 08:01 Labs: Abnormal Lab Results - Last 24 Hours (Table) 01/05/18 Range/Units 08:01 BUN 24 H (9-20) mg/dL Glucose 119 H (74-99) mg/dL Assessment and Plan Assessment: 1. New onset chest pain likely related to musculoskeletal but giving the patient's history of coronary artery disease with stent placement to the LAD back in 2014 and current ongoing chest pain I would like to keep patient's on heparin drip follow up on serial troponin continue with telemetry monitoring and avoid nitroglycerin as patient has developed ALLERGIC reaction in the emergency department with skin irritation and erythema after applying the Nitropaste. Continue cardioprotective medication repeat EKG in the morning and consider cardiac consultation for further evaluation. Most recent cardiac catheterization was done in August 2017. I was unable to pull the records from [facility] system as patient didn't N outpatient lab and we will obtain that record for complete evaluation. We will continue monitoring vital signs closely repeat blood work in the morning and I would like to treat patients with naproxen 500 mg twice daily and other component could be related to anxiety and I would like to start patients on Xanax 0.25 mg 3 times daily as needed with first dose now and monitor patient's clinical progress closely. Patient is agreeable to the current treatment plan. 2. Anxiety and depression. Agent mentioned that he is taking Zoloft at home and I would like to continue home medication and add Xanax as instructed above. 3. Coronary artery disease. Continue cardioprotective medication management as above. 4. Hypertension. Controlled. Continue cardioprotective medication as above. 5. Hyperlipidemia. Continue statin and follow up outpatient with primary care physician regarding management. Discharge planning based on clinical progress
[2018-01-05] MEDS: NITROGLYCERIN OINT 1 INCH/GM PACKET TOPICAL SCH ×4 (12:03→23:14)
--- NOTE | 2018-01-05 12:16 | P.CRDCN ---
History of Present Illness Consult date: 01/05/18 Requesting physician: Jeremías Macdonald Reason for Consult (text): unstable angina Chief complaint: left-sided chest, arm and neck pain History of present illness: This is a pleasant 62-year-old gentleman with a past medical history of hypertension, hyperlipidemia, STEMI in April 2015 at which time he had stent placement previously followed with Dr. MAYTE Freitas in our office and currently has been following with a hosiery pairer Dr. Morley out of [place]. He presents to the hospital with complaints of left-sided chest discomfort that radiated to his neck and left arm, similar to discomfort he felt at time of his ND but much less severe. He had no diaphoresis, dizziness, lightheadedness, or shortness of breath at that time. The pain was somewhat relieved after taking isosorbide which she does not take on a regular basis. He is apparently been having the pain on and off for quite some time, becoming more frequent over the last several weeks, occurs at rest without any exertional symptoms. Discomfort can last a few days. Chest x-ray on admission showed no cardiopulmonary process. He was given Nitropaste in the ER with a significant decrease in blood pressure. EKG showed sinus bradycardia with evidence of prior septal infarct with no acute changes from previous EKG. Most recent available echo from June 2016 showed normal LV systolic function with ejection fraction of 60-65%. Laboratory values showed BUN of 24, creatinine 0.89 and troponin of less than 0.012. Upon examination, patient is resting comfortably in bed. Continues to complain of some mild left chest discomfort worse with palpation. Denies any shortness of breath, palpitations, diaphoresis, abdominal discomfort, nausea, vomiting or dizziness and lightheadedness. Past Medical History Past Medical History: Coronary Artery Disease (CAD), Chest Pain / Angina, Hyperlipidemia, Hypertension, Myocardial Infarction (ND) Additional Past Medical History / Comment(s): 05/21/15 STEMI-LAD with PTCA and stent to LAD. Echo at that time showed EF of 35-40%. Other HX: Spina bifida, vertigo with vestibular neuronitis, sinusitis Last Myocardial Infarction Date:: 05/21/15 History of Any Multi-Drug Resistant Organisms: None Reported Past Surgical History: Heart Catheterization With Stent, Joint Replacement, Tonsillectomy Additional Past Surgical History / Comment(s): 05/21/15 PTCA with stent to LAD , right knee replacement, 2013 colonoscopy Past Anesthesia/Blood Transfusion Reactions: No Reported Reaction Date of Last Stent Placement:: 05/21/15 Past Psychological History: No Psychological Hx Reported Smoking Status: Never smoker Past Alcohol Use History: Occasional Past Drug Use History: None Reported - Past Family History Father Family Medical History: Myocardial Infarction (ND) Additional Family Medical History / Comment(s): father at age 51 from a heart attack Mother Family Medical History: Cancer Additional Family Medical History / Comment(s): breast Daughter(s) Family Medical History: Cancer Additional Family Medical History / Comment(s): thyroid Medications and Allergies Home Medications Medication Instructions Recorded Confirmed Type Atorvastatin [Lipitor] 80 mg PO HS #30 tab 05/24/15 01/05/18 Rx Nitroglycerin Sl Tabs [Nitrostat] 0.4 mg SUBLINGUAL Q5M PRN #25 tab 05/24/1504/14 Rx Aspirin 81 mg PO DAILY 07/03/15 01/05/18 History Clopidogrel [Plavix] 75 mg PO HS 07/03/15 01/05/18 History Lisinopril [Zestril] 5 mg PO HS 07/03/15 01/05/18 History Metoprolol Tartrate [Lopressor] 25 mg PO DAILY 07/03/15 01/05/18 History Glucosamine 750 Mg 750 mg PO DAILY 02/14/16 01/05/18 History Loratadine [Claritin] 10 mg PO DAILY 01/05/18 01/05/18 History Sertraline [Zoloft] 50 mg PO DAILY 01/05/18 01/05/18 History Allergies Allergy/AdvReac Type Severity Reaction Status Date / Time Penicillins Allergy Rash/Hives Verified 01/05/18 12:57 guaifenesin [From Robitussin] AdvReac Unknown Verified 01/05/18 12:57 paroxetine [From Paxil] AdvReac Hallucinati Verified 01/05/18 12:57 ons Physical Exam Vitals: Vital Signs Temp Pulse Pulse Resp BP BP Pulse Ox 01/05/18 11:19 16 01/05/18 11:17 54 L 16 108/61 98 01/05/18 09:44 98.2 F 51 L 16 106/65 97 01/05/18 08:42 52 L 16 126/76 99 01/05/18 07:41 97.9 F 69 20 149/71 98 Intake and Output 01/04/18 01/05/18 01/05/18 22:59 06:59 14:59 Other: Weight 90.718 kg PHYSICAL EXAMINATION: HEENT: [Head is atraumatic, normocephalic. Pupils equal, round. Neck is supple. There is no elevated jugular venous pressure.] HEART EXAMINATION: [Heart sounds regular, S1 and S2 normal. No murmur or gallop heard.] CHEST EXAMINATION:[ Lungs are clear to auscultation and precussion. No chest wall tenderness is noted on palpation or with deep breathing.] ABDOMEN: [ Soft, nontender. Bowel sounds are heard. No organomegaly noted]. EXTREMITIES:[ 2+ peripheral pulses with no evidence of peripheral edema and no calf tenderness noted]. NEUROLOGIC [patient is awake, alert and oriented x3.] . Results 01/05/18 08:01 01/05/18 08:01 Cardiac Enzymes 01/05/18 01/05/18 Range/Units 08:01 08:01 AST 25 (17-59) U/L CK-MB (CK-2) 1.6 (0.0-2.4) ng/mL Troponin I <0.012 (0.000-0.034) ng/mL Coagulation 01/05/18 Range/Units 08:01 PT 10.4 (9.0-12.0) sec APTT 24.0 (22.0-30.0) sec CBC 01/05/18 Range/Units 08:01 WBC 5.8 (3.8-10.6) k/uL RBC 5.37 (4.30-5.90) m/uL Hgb 15.7 (13.0-17.5) gm/dL Hct 47.4 (39.0-53.0) % Plt Count 213 (150-450) k/uL Comprehensive Metabolic Panel 01/05/18 Range/Units 08:01 Sodium 139 (137-145) mmol/L Potassium 4.4 (3.5-5.1) mmol/L Chloride 107 (98-107) mmol/L Carbon Dioxide 24 (22-30) mmol/L BUN 24 H (9-20) mg/dL Creatinine 0.89 (0.66-1.25) mg/dL Glucose 119 H (74-99) mg/dL Calcium 9.0 (8.4-10.2) mg/dL AST 25 (17-59) U/L ALT 38 (21-72) U/L Alkaline Phosphatase 76 (38-126) U/L Total Protein 6.3 (6.3-8.2) g/dL Albumin 4.0 (3.5-5.0) g/dL Current Medications Generic Name Dose Route Start Last Admin Trade Name Freq PRN Reason Stop Dose Admin Alprazolam 0.25 mg 01/05/18 11:33 Xanax PO TID PRN Anxiety Aspirin 325 mg 01/06/18 09:00 Aspirin PO DAILY [facility] Aspirin 81 mg 01/06/18 09:00 Aspirin PO DAILY [facility] Atorvastatin Calcium 80 mg 01/05/18 21:00 Lipitor PO HS [facility] Clopidogrel Bisulfate 75 mg 01/05/18 21:00 Plavix PO HS [facility] Heparin Sodium/Sodium Chloride 500 mls @ 20.01 mls/hr 01/05/18 09:15 09:41 25,000 unit/ Sodium Chloride IV 11.03 units/kg/hr .Q24H PINKY 20.01 mls/hr Administration Protocol 11.03 UNITS/KG/HR Lisinopril 5 mg 01/05/18 21:00 Zestril PO HS [facility] Metoprolol Tartrate 25 mg 01/06/18 09:00 Lopressor PO DAILY [facility] Naproxen 500 mg 01/05/18 11:45 Naprosyn PO BID [facility] Nitroglycerin 1 inch 01/05/18 12:00 Nitro-Bid Oint TOPICAL Q6HR [facility] Nitroglycerin 0.4 mg 01/05/18 09:16 Nitrostat SUBLINGUAL Q5M PRN Chest Pain Intake and Output 01/04/18 01/05/18 01/05/18 22:59 06:59 14:59 Other: Weight 90.718 kg Patient Weight 01/06/18 06:59 Weight 90.718 kg 01/05/18 08:01 01/05/18 08:01 EKG Interpretations (text) Sinus bradycardia with evidence of prior septal infarct, no changes from previous EKG from June 2016 Assessment and Plan Assessment: #1 symptoms of left-sided chest, arm and neck discomfort, troponin negative 1 #2 history of coronary artery disease with prior STEMI and stenting in April 2015 #3 hypertension #4 hyperlipidemia Plan: From cardiology perspective, we will obtain a 2-D echo with Doppler. We will continue to follow the troponins. Avoid nitrates due to significant hypotension. We will schedule the patient to undergo cardiac catheterization tomorrow. Further recommendations to follow. GOLD STAMPER note has been reviewed, I agree with a documented findings and plan of care. Patient was seen and examined.
[2018-01-05] MEDS ORDERED: ALPRAZolam 0.5 MG TAB PO PRN (14:11)
[2018-01-05] MEDS ORDERED: SODIUM CHLORIDE 0.9% 1,000 ML in EMPTY BAG 1 BAG IV ONE (14:11)
[2018-01-05 14:46] LABS: Creatine Kinase 110 U/L (55-170)
[2018-01-05 15:00] LABS: Creatine Kinase MB 1.4 ng/mL (0.0-2.4); Troponin I <0.012 ng/mL (0.000-0.034)
[2018-01-05] MEDS: NAPROXEN 250 MG TAB PO SCH ×2 (17:12→20:25)
[2018-01-05 17:46] VITALS: BMI 25.7
[2018-01-05 20:44] LABS: Creatine Kinase 95 U/L (55-170)
[2018-01-05 20:58] LABS: Creatine Kinase MB 1.2 ng/mL (0.0-2.4); Troponin I <0.012 ng/mL (0.000-0.034)
[2018-01-05] MEDS ORDERED: CLOPIDOGREL 75 MG TAB PO SCH (21:00)
[2018-01-05] MEDS ORDERED: LISINOPRIL 5 MG TAB PO SCH (21:00)
[2018-01-05] MEDS ORDERED: ATORVASTATIN 80 MG TAB PO SCH (21:00)
[2018-01-05 22:03] LABS: Cholesterol 118 mg/dL (<200); HDL Cholesterol 33 mg/dL (40-60); LDL Cholesterol,Calculated 67 mg/dL (0-99); Triglycerides 88 mg/dL (<150)
[2018-01-06] MEDS: HEPARIN SOD,PORK IN 0.45% NACL 25,000 UNIT in 0.45% NACL 1 500ML.BAG IV SCH (03:06)
[2018-01-06 05:32] VITALS: TEMP 97.5
[2018-01-06] MEDS: NITROGLYCERIN OINT 1 INCH/GM PACKET TOPICAL SCH ×3 (06:45→16:39)
[2018-01-06] MEDS: NAPROXEN 250 MG TAB PO SCH (06:46)
[2018-01-06 07:38] VITALS: RESP 16
[2018-01-06] MEDS ORDERED: METOPROLOL TARTRATE 25 MG TAB PO SCH (09:00)
[2018-01-06] MEDS ORDERED: ASPIRIN 81 MG PO SCH (09:00)
[2018-01-06] MEDS ORDERED: ASPIRIN 325 MG TAB PO SCH (09:00)
[2018-01-06] MEDS ORDERED: LIDOCAINE 1% INJ 10MG/ML (20 ML MDV) ONE (09:33)
[2018-01-06] MEDS ORDERED: fentaNYL (PF) 50 MCG/ML 2 ML AMP ONE (09:50)
[2018-01-06] MEDS ORDERED: MIDAZOLAM 2 MG/2 ML VIAL ONE (09:50)
[2018-01-06] MEDS ORDERED: MIDAZOLAM 2 MG/2 ML VIAL IV ONE (10:09)
[2018-01-06] MEDS ORDERED: fentaNYL (PF) 50 MCG/ML 2 ML AMP IV ONE (10:09)
[2018-01-06] MEDS ORDERED: IV FLUID CONTINUATION 700 ML IV ONE (10:10)
[2018-01-06] MEDS ORDERED: LIDOCAINE 1% INJ 10MG/ML (20 ML MDV) SQ ONE (10:12)
[2018-01-06] MEDS ORDERED: IOPAMIDOL-370 125ML BTL INJ ONE (10:27)
[2018-01-06] MEDS ORDERED: IOPAMIDOL-370 50ML BTL INJ ONE (10:27)
--- NOTE | 2018-01-06 11:08 | CC ---
CARDIAC CATHETERIZATION REPORT INDICATIONS: Mr. Barkley was admitted with recurrent nocturnal chest pain suggestive of unstable angina syndrome. Patient has a known history of coronary artery disease with prior history of anterior apical myocardial infarction and stent to the LAD. Cardiac enzymes were negative. In view of the recurrent resting pain, the patient was recommended to have a cardiac catheterization for definitive diagnosis. PROCEDURE: Right groin was prepped and draped in the usual manner and the skin was infiltrated with 2% Xylocaine. The right femoral artery was entered using Seldinger technique. A #6- Mongolian sheath was placed in. Selective coronary angiography was then performed in multiple projections and left ventriculography was performed. The patient tolerated the procedure well. HEMODYNAMICS: Left ventricular end-diastolic pressure is 12 to 14 mmHg prior to angiography. No gradient is noted across the aortic valve. SELECTIVE CORONARY ANGIOGRAPHY: 1. Left main coronary artery is normally patent. 2. LAD is a good caliber blood vessel, is patent at the site of prior stent placement. Prior to the stent there is about 20% to 30% stenosis. Distal to that, LAD is a good caliber blood vessel. There is about 50% stenosis very distally into the distal LAD, where it wraps around the apex. 3. Circumflex coronary artery is a good caliber blood vessel, gives rise to a good size obtuse marginal branch. It also gives rise to the posterior descending artery and PLV branch. The circumflex coronary artery and its branches are normal. 4. Right coronary artery is small and nondominant. 5. Left ventriculography reveals a small area of apical hypokinesia with ejection fraction of 55%. FINAL IMPRESSION: This study shows about 20% to 30% stenosis in mid LAD prior to the stent placement. The stent site looks good. Very distal LAD, where it wraps around the apex, has 50% stenosis. Circumflex coronary artery is normal. Right coronary artery is normal. Left ventriculography reveals apical hypokinesia. We have reviewed the films with Dr. Quiroga and advised medical treatment. MMODL / IJN: [id number] /
--- NOTE | 2018-01-06 12:21 | P.DS ---
Providers Date of admission: 01/05/18 09:16 Attending physician: Tran Matias Consults: 01/05/18 09:16 Consult Physician Urgent Consulting Provider: [facility] Consult Reason/Comments: Unstable angina Do you want consulting provider notified?: Yes Primary care physician: Jeremías [facility] Course: This is 62 years old male with past medical history significant for coronary artery disease status post stent placement in 2014 to the LAD presents to the emergency department with new onset chest pain. Patient received cardiac catheterization back in August 2016 by his primary information systems technician at and another stress test earlier this year that all came back negative patient was ventilated by cardiology and cardiac catheterization was done finding was positive for coronary artery disease 20-30% to 50% stenosis notified on the cardiac catheterization ejection fraction was found to be 55%. Chest pain felt to be related to musculoskeletal and exacerbated by anxiety patient advised to take Motrin 603 times daily at the time of the discharge for 5 days and then as needed require to follow-up with his primary care physician within one week to discuss anxiety and depression management as patient was started on Zoloft 50 mg daily and dose never been adjusted and I recommended to go up to 100 after seen by his primary care physician to do the adjustment and to monitor closely also to consider Xanax on as-needed basis family were at the bedside who agreed that the patient is depressed and having anxiety symptoms and would like to follow-up with his primary care physician outpatient patient felt stable from the medical standpoint tolerated diet cleared by cardiology and felt stable from a medical standpoint for discharge to follow-up closely with his primary care physician Plan - Discharge Summary Discharge Rx Participant: No New Discharge Prescriptions: No Action Atorvastatin [Lipitor] 80 mg PO HS #30 tab Nitroglycerin Sl Tabs [Nitrostat] 0.4 mg SUBLINGUAL Q5M PRN #25 tab PRN Reason: Chest Pain Metoprolol Tartrate [Lopressor] 25 mg PO DAILY Lisinopril [Zestril] 5 mg PO HS Clopidogrel [Plavix] 75 mg PO HS Aspirin 81 mg PO DAILY Glucosamine 750 Mg 750 mg PO DAILY Sertraline [Zoloft] 50 mg PO DAILY Loratadine [Claritin] 10 mg PO DAILY Discharge Medication List Atorvastatin [Lipitor] 80 mg PO HS #30 tab 05/24/15 [Rx] Nitroglycerin Sl Tabs [Nitrostat] 0.4 mg SUBLINGUAL Q5M PRN #25 tab 05/24/15 [Rx ] Aspirin 81 mg PO DAILY 07/03/15 [History] Clopidogrel [Plavix] 75 mg PO HS 07/03/15 [History] Lisinopril [Zestril] 5 mg PO HS 07/03/15 [History] Metoprolol Tartrate [Lopressor] 25 mg PO DAILY 07/03/15 [History] Glucosamine 750 Mg 750 mg PO DAILY 02/14/16 [History] Loratadine [Claritin] 10 mg PO DAILY 01/05/18 [History] Sertraline [Zoloft] 50 mg PO DAILY 01/05/18 [History] Follow up Appointment(s)/Referral(s): Jeremías Macdonald MD [Primary Care Provider] - 1-2 days
[2018-01-06] MEDS ORDERED: RX INFO: IV CONTRAST WAS GIVEN 1 EACH MISC MISCELLANE PRN (13:13)
[2018-01-06 16:42] VITALS: BP 109/63; PULSE 52
== END 2018-01-06 18:46 | disposition home or self-care (01) ==
LOC: EC 07:40 → 6SEL 09:16
PROVIDERS: ADMIT Internal Medicine; ATTEND Internal Medicine
DX: R07.89 Other chest pain (principal); F41.9 Anxiety disorder, unspecified; F32.9 Major depressive disorder, single episode, unspecified; Z95.5 Presence of coronary angioplasty implant and graft; I25.10 Atherosclerotic heart disease of native coronary artery without angina pectoris; I25.2 Old myocardial infarction; E78.5 Hyperlipidemia, unspecified; I10 Essential (primary) hypertension; J32.9 Chronic sinusitis, unspecified; R11.0 Nausea; R61 Generalized hyperhidrosis; T46.3X5A Adverse effect of coronary vasodilators, initial encounter; Z80.3 Family history of malignant neoplasm of breast; Z80.8 Family history of malignant neoplasm of other organs or systems; Z79.899 Other long term (current) drug therapy; Z79.82 Long term (current) use of aspirin; Z79.02 Long term (current) use of antithrombotics/antiplatelets; Z88.8 Allergy status to other drugs, medicaments and biological substances; Z88.0 Allergy status to penicillin
CPT/HCPCS: 99291; 96374 ×2; 96361 ×2; 96375 ×2; 36415; 93306; 93458; 80061; 80053; 82550; 82553; 83735; 84484; 85025; 85610; 85730 ×2; 71046; G0378 ×2; C1760; C1894; C1769; J2250; J1644 ×3; J2405; J2001; J3010; Q9967 ×2

== ENCOUNTER 2018-05-09 08:59 | Day surgery (SDC) | payer BC ==
[2018-05-08 08:50] VITALS: BMI 26.9
[~2018-05-09 08:59] MED LIST changes: +LACTATED RINGERS 1,000 ML IV SCH; +LIDOCAINE 1% 20 ML VIAL (10MG/ML) FOR IV START INTRADERMA PRN; -SODIUM CHLORIDE 0.9% 1,000 ML IV SCH
[2018-05-09 10:12] VITALS: RESP 16; TEMP 98
[2018-05-09] MEDS ORDERED: PROPOFOL 10 MG/ML 20 ML VIAL IV ONE (11:09)
[2018-05-09] MEDS ORDERED: LIDOCAINE 1% INJ 10MG/ML (20 ML MDV) ONE (11:09)
--- NOTE | 2018-05-09 11:52 | P.PCN ---
Date of Procedure: 05/09/18 Procedure(s) Performed: Procedure: Total colonoscopy. Preoperative diagnosis: Screening for neoplasia, patient has family history of colon cancer. Postoperative diagnosis: Exam within normal limits. Preparation: HalfLytely prep. Sedation: Was provided by anesthesia. Brief clinical history: The patient is a 62-year-old male with family history of colon cancer in his mother. He has no abdominal complaints, bleeding or anemia. His last exam was in 2012. Procedure: With the patient on his left lateral decubitus position and after informed consent and adequate sedation, the perianal area was inspected and it did not show any fissures or fistulas. There were no masses felt on digital rectal examination. The Olympus CFH 190L video colonoscope was then inserted in the rectum in the usual fashion and advanced to the cecum. The mucosa appeared healthy. No polyps or tumors were seen or any obvious diverticular disease or other pathology. I retroflexed the endoscope in the rectum before the endoscope were withdrawn. The patient tolerated the procedure well. Plan: The patient was reassured. He will follow up with you as planned and I recommended repeat exam in 5 years.
[2018-05-09 12:03] VITALS: BP 122/77; PULSE 52
== END 2018-05-09 12:29 | disposition home or self-care (01) ==
LOC: ORWHC2ENDO 08:59
DX: Z12.11 Encounter for screening for malignant neoplasm of colon (principal); I25.10 Atherosclerotic heart disease of native coronary artery without angina pectoris; I10 Essential (primary) hypertension; F39 Unspecified mood [affective] disorder; E78.5 Hyperlipidemia, unspecified; I25.2 Old myocardial infarction; Z88.0 Allergy status to penicillin; Z88.8 Allergy status to other drugs, medicaments and biological substances; Z87.891 Personal history of nicotine dependence; Z95.5 Presence of coronary angioplasty implant and graft; Z80.0 Family history of malignant neoplasm of digestive organs; Z79.82 Long term (current) use of aspirin; Z79.02 Long term (current) use of antithrombotics/antiplatelets; Z79.899 Other long term (current) drug therapy
CPT/HCPCS: 45378; J2001; J2704